=== PATIENT | male | born 2000 | race African-American/Black ===

== ENCOUNTER 2021-01-01 09:15 | Emergency (ER) | payer OTHER, SELFPAY ==
--- NOTE | 2021-01-01 09:20 | ED.URI ---
HPI - URI/Sore Throat General Chief Complaint: Ear Stated Complaint: sore throat Time Seen by Provider: 01/01/21 09:20 Source: patient and RN notes reviewed History of Present Illness HPI Narrative: Patient is a 20-year-old male who presents the urgent care with complaints of a sore throat and fever for the last 2 days. Patient states that he has been taking ibuprofen for the temperature and last dose was at 8 AM this morning. Patient denies of any known exposure to strep or flu but he is a student services counselor. Denies of any other upper respiratory symptoms. Denies any nausea, vomiting, headache, abdominal pain. No acute distress noted. Patient aware of the plan of care. Some parts of this dictation were generated by voice recognition software and may contain typographical and/or grammatical inaccuracies. Related Data Allergies Allergy/AdvReac Type Severity Reaction Status Date / Time No Known Allergies Allergy Verified 01/01/21 09:20 Review of Systems Review of Systems: Narrative: CONSTITUTIONAL: Reports a fever EYES: Denies visual changes, redness, or discharge. ENT: Reports of a sore throat CARDIOVASCULAR: Denies chest pain, palpitations, or edema. RESPIRATORY: Denies cough or dyspnea. GASTROINTESTINAL: Denies abdominal pain, nausea, vomiting, or diarrhea. GENITOURINARY: Denies dysuria or hematuria. SKIN: Denies rash or itching. MUSCULOSKELETAL: Denies back pain, joint pain, or myalgia. NEUROLOGIC: Denies headache, numbness, or weakness. All other systems reviewed are negative, except as documented in HPI. PMFSH Comments At the time of my signature, I reviewed and agree with the nursing past medical, surgical, social, and family history. There is no relevant family history pertinent to the patient complaint. Exam Narrative: Exam Narrative: GENERAL: This is a well-nourished, well-developed patient, in no apparent distress. HEAD: normocephalic, atraumatic. EYES: PERRL. Sclera clear/white. Vision is grossly intact. EARS: External ears normal, auditory canals clear and without drainage, notable cerumen bilaterally. TMs normal without perforation. Hearing grossly intact. NOSE: External nose normal with no obvious nasal discharge, nares without redness, no rhinorrhea. THROAT: Mucous membranes moist, moderate erythema noted posterior oropharynx with mild left tonsillar swelling without exudate or ulceration. Mild postnasal drainage NECK: Neck supple, tender mild left submandibular lymphadenopathy CARDIOVASCULAR: Regular rate and rhythm without murmurs, gallops, or rubs. RESPIRATORY: Clear to auscultation. Breath sounds equal bilaterally. No wheezes, rales, or rhonchi. GASTROINTESTINAL: Abdomen soft, non-tender, nondistended. Bowel sounds are active. No hepato-splenomegaly, or palpable masses. No guarding. SKIN: warm, intact with no suspicious lesions or rash, good texture and turgor. NEURO: awake, alert, and oriented to person, place and time. There were no obvious focal neurologic abnormalities. EXTREMITIES: No clubbing, cyanosis, or edema. Course Vital Signs Vital signs: Vital Signs Temperature 99.7 F H 01/01/21 09:22 Pulse Rate 75 01/01/21 09:22 Respiratory Rate 16 01/01/21 09:22 Blood Pressure 115/72 01/01/21 09:22 Pulse Oximetry 98 01/01/21 09:22 Temperature 99.7 F H 01/01/21 09:22 Pulse Rate 75 01/01/21 09:22 Respiratory Rate 16 01/01/21 09:22 Blood Pressure 115/72 01/01/21 09:22 Pulse Oximetry 98 01/01/21 09:22 Reviewed MDM - URI/Sore Throat MDM Narrative Medical decision making narrative: Reviewed lab results with the patient. He is aware that strep swab was positive. Advised the patient to complete oral antibiotic regimen as prescribed. Use Claritin/Benadryl as needed for postnasal drainage and mild tonsillar swelling. Use Tylenol/ibuprofen as needed for fever or pain. Make sure to change her toothbrush within 2 to 3 days. Eat and drink with the medication. You will be contagi
[2021-01-01 09:22] VITALS: BP 115/72; PULSE 75; RESP 16; TEMP 37.6; O2SAT 98
== END 2021-01-01 09:49 | disposition home or self-care (01) ==
PROVIDERS: Emergency Provider Nurse Practitioner Family
DX: J02.0 Streptococcal pharyngitis (principal)
CPT/HCPCS: 87880; 99213; G0463